=== PATIENT | female | born 1970 | race Two or more races ===

== ENCOUNTER 2017-06-09 14:53 | Emergency (ER) | payer MEDICAID ==
[~2017-06-09] VITALS: Ht 165.1 cm; Wt 56.7 kg
[2017-06-09 15:22] VITALS: BP 114/72
[2017-06-09] MEDS ORDERED: Famotidine 20 MG/ 2ML VIAL IVP ONE (15:45)
--- NOTE | 2017-06-09 15:55 | Emergency Room Report ---
History of Present Illness General Chief Complaint: Abdominal Pain Source: Patient Present Illness HPI The patient presents with crampy upper abdominal pain. It's been going on for 4 days. She states when severe it's a 9/10. When she is laying down now it's 2 /10. She states it's across the upper abdomen and possibly worse on the left- hand side. A week before she was feeling some indigestion type feelings. The only medication she took was acidophilus. It didn't help. In addition to that she was drinking some alcohol last night, wine, and this didn't seem to affect the pain at all. She denies any change in her bowels. Her last period was in April. She started vaginal spotting just before periods recently. She denies any dysuria, back pain. She denies any upper respiratory symptoms and denies chest pain. There's no cough or shortness of breath although when the cramping it's severe she does feel out of breath. She denies any medical problems. No recent travel, unusual food ingestion or ill contacts. Allergies: Coded Allergies: No Known Allergies (Unverified , 06/09/17) Patient History Past Medical History: see triage record Social History: Reports: alcohol use, Denies: smoking Social History Narrative junior designer Reviewed Nursing Documentation: PMH: Agreed, PSxH: Agreed Nursing Documentation-PM Past Medical History: No Stated History Review of Systems All Other Systems: negative except mentioned in HPI Physical Exam Vital Signs Date Time Temp Pulse Resp B/P Pulse Ox O2 Delivery O2 Flow Rate FiO2 06/09/17 14:59 97.3 110 20 114/61 98 Room Air Sp02 EP Interpretation: reviewed, normal General Appearance: well appearing, no apparent distress, GCS 15 Head: normocephalic Eyes: bilateral eye PERRL, bilateral eye normal inspection ENT: moist mucus membranes Neck: supple Respiratory: lungs clear, normal breath sounds Cardiovascular #1: regular rate, rhythm Cardiovascular #2: 2+ radial (R) Gastrointestinal: normal inspection, normal bowel sounds, no mass, non- distended, no guarding, no rebound, tenderness - epigastric and upper abdomen Genitourinary: no CVA tenderness - but some anterior pain with pushing on L side Musculoskeletal: back normal, gait/station normal, normal range of motion Neurologic: alert, oriented x3, grossly normal Psychiatric: mood/affect normal Skin: normal inspection, warm/dry Medical Decision Making Diagnostic Impression: Primary Impression: Abdominal pain Qualified Codes: R10.12 - Left upper quadrant pain Additional Impression: Leukocytosis Qualified Codes: D72.829 - Elevated white blood cell count, unspecified ER Course Patient presents with 4 days of crampy abdominal pain. Differential includes gastroenteritis, diverticulitis, pancreatitis, GERD, gastritis amongst others. The pain is occasionally severe and with this differential she needs to have a fairly extensive workup. This will include CBC, CMP, lipase and urinalysis urine test. In addition a CT of the abdomen with oral and IV contrast will be obtained. The patient will be treated with gentle IV hydration in addition to that will receive Pepcid. She declines pain medication at this time. White count is elevated at 14,400. Other labs are unremarkable. CT scan shows thickening and inflammatory changes of the colon at the splenic flexure which is either colitis but cannot exclude underlying lesion. Suggested colonoscopy. Hepatic lesions. Low attenuation foci in the kidneys. 2.7 cm lesion in the perineum (patient states she has a Bartholin's gland cyst there was front seat. 1.8 cm peripherally enhancing lesion along the right pelvic wall which may be an adnexal structures such as corpus luteum cyst. Nonspecific 4 mm linear and nodule right middle lobe. Based on the leukocytosis and the CT findings the patient needs hospitalization and observation. Discussed with patient who feels better. Given the fact that GI workup would not be done on weekend, we've elected to observe the patient as outpatient. (I also presented her to Dr. Rivero at [facility]) Laboratory Tests Test 06/09/17 15:02 06/09/17 16:10 Urine Color Pale yellow Urine Appearance Clear Urine pH 6 (4.5-8.0) Urine Specific [place] 1.005 (1.005-1.035) Urine Protein Negative (NEGATIVE) Urine Glucose (UA) Negative (NEGATIVE) Urine Ketones 1+ (NEGATIVE) H Urine Occult Blood 1+ (NEGATIVE) H Urine Nitrite Negative (NEGATIVE) Urine Bilirubin Negative (NEGATIVE) Urine Urobilinogen Normal MG/DL (0.0-1.0) Urine Leukocyte Esterase Negative (NEGATIVE) Urine RBC 0-2 /HPF (0 - 2) Urine WBC 0-2 /HPF (0 - 2) Urine Squamous Epithelial Cells Few /LPF (NONE/OCC) Urine Bacteria Few /HPF (NONE) Urine HCG, Qualitative Negative White Blood Count 14.4 K/UL (4.8-10.8) H Red Blood Count 4.55 M/UL (4.20-5.40) Hemoglobin 15.2 G/DL (12.0-16.0) Hematocrit 41.5 % (37.0-47.0) Mean Corpuscular Volume 91 FL (80-99) Mean Corpuscular Hemoglobin 33.4 PG (27.0-31.0) H Mean Corpuscular Hemoglobin Concent 36.5 G/DL (32.0-36.0) H Red Cell Distribution Width 11.4 % (11.6-14.8) L Platelet Count 210 K/UL (150-450) Mean Platelet Volume 8.2 FL (6.5-10.1) Neutrophils (%) (Auto) 79.7 % (45.0-75.0) H Lymphocytes (%) (Auto) 12.6 % (20.0-45.0) L Monocytes (%) (Auto) 5.8 % (1.0-10.0) Eosinophils (%) (Auto) 1.1 % (0.0-3.0) Basophils (%) (Auto) 0.8 % (0.0-2.0) Prothrombin Time 9.4 SEC (9.30-11.50) Prothrombin Time INR 0.9 (0.9-1.1) PTT 28 SEC (23-33) Sodium Level 137 mEQ/L (135-145) Potassium Level 4.4 mEQ/L (3.4-4.9) Chloride Level 100 mEQ/L (98-107) Carbon Dioxide Level 26 mEQ/L (20-30) Anion Gap 11 (5-15) Blood Urea Nitrogen 6 mg/dL (7-23) L Creatinine 0.6 mg/dL (0.5-0.9) Estimate Glomerular Filtration Rate > 60 mL/min (>60) Glucose Level 94 mg/dL (74-106) Calcium Level 9.8 mg/dL (8.6-10.2) Total Bilirubin 0.6 mg/dL (0.0-1.2) Aspartate Amino Transferase (AST) 13 U/L (5-40) Alanine Aminotransferase (ALT) 9 U/L (3-33) Alkaline Phosphatase 61 U/L (35-104) Total Protein 7.3 g/dL (6.6-8.7) Albumin 4.5 g/dL (3.5-5.2) Globulin 2.8 g/dL Albumin/Globulin Ratio 1.6 (1.0-2.7) Lipase 18 U/L (< 60) Rhythm Strip Diag. Results EP Interpretation: yes Rhythm: NSR, no PVC's, no ectopy Last Vital Signs Date Time Temp Pulse Resp B/P Pulse Ox O2 Delivery O2 Flow Rate FiO2 06/09/17 20:52 98.6 98 18 104/83 100 Room Air Status: improved Disposition: HOME, SELF-CARE Condition: Improved Scripts Tramadol Hcl* (ULTRAM*) 50 Mg Tablet 50 MG ORAL Q6H Y for For Pain, #6 TAB 0 Refills Prov: Tre Daigle M.D. 06/09/17 Dicyclomine Hcl* (BENTYL*) 10 Mg Capsule 10 MG ORAL FOUR TIMES A DAY Y for cramps, #10 CAP 1 Refill Prov: Tre Daigle M.D. 06/09/17 Acetaminophen (Tylenol) 325 Mg Tablet 650 MG ORAL Q6H Y for Prn Pain/Headache/Temp > 101, #20 TAB 0 Refills Prov: Ter Daigle M.D. 06/09/17 Tre Daigle M.D. Jun 09, 2017 15:55
[2017-06-09 16:04] LABS: APPEARANCE,URINE CLEAR; KETONES,URINE 1+ (NEGATIVE); LEUKOCYTE ESTERASE ,URINE NEGATIVE (NEGATIVE); NITRITE,URINE NEGATIVE (NEGATIVE); PH,URINE 6 (4.5-8.0); PROTEIN,URINE NEGATIVE (NEGATIVE); UROBILINOGEN,URINE NORMAL MG/DL (0.0-1.0)
[2017-06-09 16:22] LABS: RBC,URINE 0-2 /HPF (0 - 2); SQUAMOUS EPITHELIAL CELL,UR FEW /LPF (NONE/OCC); WBC,URINE 0-2 /HPF (0 - 2)
[2017-06-09 16:23] LABS: BACTERIA,URINE FEW /HPF
[2017-06-09 16:33] LABS: BASOPHILS % (AUTO) 0.8 % (0.0-2.0); EOSINOPHILS % (AUTO) 1.1 % (0.0-3.0); LYMPHOCYTES % (AUTO) 12.6 % (20.0-45.0); MEAN CORPUSCULAR HEMOGLOBIN 33.4 PG (27.0-31.0); MEAN CORPUSCULAR HGB CONC 36.5 G/DL (32.0-36.0); MEAN CORPUSCULAR VOLUME 91 FL (80-99); MEAN PLATELET VOLUME 8.2 FL (6.5-10.1); MONOCYTES % (AUTO) 5.8 % (1.0-10.0); NEUTROPHILS % (AUTO) 79.7 % (45.0-75.0); PLATELET COUNT 210 K/UL (150-450); RED BLOOD COUNT 4.55 M/UL (4.20-5.40); RED CELL DISTRIBUTION WIDTH 11.4 % (11.6-14.8); WHITE BLOOD COUNT 14.4 K/UL (4.8-10.8)
[2017-06-09 16:39] LABS: INR 0.9 (0.9-1.1); PROTHROMBIN TIME 9.4 SEC (9.30-11.50)
[2017-06-09 16:46] LABS: ALANINE AMINOTRANSFERASE 9 U/L (3-33); ALBUMIN/GLOBULIN RATIO 1.6 (1.0-2.7); ANION GAP 11 (5-15); ASPARTATE AMINO TRANSFERASE 13 U/L (5-40); CALCIUM 9.8 mg/dL (8.6-10.2); CARBON DIOXIDE 26 mEQ/L (20-30); CHLORIDE 100 mEQ/L (98-107); CREATININE 0.6 mg/dL (0.5-0.9); GLOMERULAR FILTRATION RATE > 60 mL/min (>60); HEMOLYSIS 0; LIPASE 18 U/L (< 60); POTASSIUM 4.4 mEQ/L (3.4-4.9); SODIUM 137 mEQ/L (135-145); TOTAL PROTEIN 7.3 g/dL (6.6-8.7)
[2017-06-09 18:14] VITALS: BP 101/80
[2017-06-09] MEDS ORDERED: NKM (19:24)
[2017-06-09] MEDS ORDERED: BENTYL10 MG ORAL (20:36)
[2017-06-09] MEDS ORDERED: TYLENOL325 MG ORAL (20:36)
[2017-06-09] MEDS ORDERED: TRAMADOL HCL50 MG ORAL (20:38)
[2017-06-09 20:52] VITALS: BP 104/83
--- NOTE | 2017-06-10 10:36 | Diagnostic Imaging Report ---
Indication: Abdominal pain Technique: Continuous helical transaxial imaging of the abdomen and pelvis was obtained from the lung bases to the pubic symphysis during intravenous contrast administration. Coronal 2-D reformats were also obtained. Study obtained in a Siemens sensation [address] Total Dose length Product (DLP): [address] Dose Index Volume (CTDIvol): 17, 17 mGy Comparison: None Findings: In the left upper quadrant of the abdomen, there is an abnormal fairly short segment focus of bowel wall thickening involving the splenic flexure of the colon. Presently there is luminal narrowing. The pericolonic fat is ill-defined with soft tissue stranding and a small amount of fluid noted. This is indicative of inflammation. Is the findings may be inflammatory in nature. However the possibility of a colonic adenocarcinoma should be considered. Further right lesion with colonoscopy is recommended. The lesion is nonobstructive. There is good opacification of the colon both proximal and distal to it. There is no free air. There is no pneumatosis. There is moderate fecal retention within the rectosigmoid region. Suggestion of diverticulosis. Rim-enhancing approximately 2 cm cystic focus in the right adnexa likely an ovarian cyst. A similar or possibly involuting cyst in the left adnexa measuring 2 x 1 CM. Uterus is slightly heterogeneous. The appendix is identified and appears normal opacified with contrast material. There is a 3.4 x 2.2 cm left perineal cyst. This is in posterior lateral aspect of the vagina and is most likely an enlarged Bartholin's gland cyst. This is fairly large and may be symptomatic. Referral to [employer]PORATE CLAIMS EXAMINER is suggested. Within the liver there is a 3 cm hypodensity that shows marginal and nodular enhancement. This is most likely hemangioma, but not definitive the proven on the current study which was not a dynamic CT. There are other smaller hypodensities present that are nonspecific and could be either hemangiomata or possibly cysts. Is there a one or 2 tiny hypodensities within the kidneys too small to adequately characterize. One is likely a cyst measuring about 5-6 mm in the left kidney. The spleen, pancreas, gallbladder, adrenal glands appear normal. Trace free fluid in the pelvis noted. There is no free air or evidence of bowel obstruction. Pars interarticularis defects are demonstrated bilaterally at L5. There is no subluxation and alignment of the lumbosacral spine is normal. Impression: Focus of marked wall thickening/luminal narrowing noted in the splenic flexure of the colon with pericolonic inflammation. Findings could have an inflammatory basis such as diverticulitis. However adenocarcinoma is a definite possibility and colonoscopy is recommended for further evaluation. 3 cm hypodensity in the right lower liver most likely hemangioma. Suggest either correlation ultrasound and/or more definitive CT hemangioma protocol. Small hypodensities in the liver and kidneys too small to characterize adequately. 3.4 x 2.2 cm suspected enlarged left Bartholin gland cyst. Gynecology referral suggested. Diverticulosis of the colon mild in degree Suggestion of bilateral ovarian cysts. Normal appendix L5 spondylolysis. No associated spondylolisthesis. [facility] has communicated the preliminary results to the Emergency Department. Their findings are largely concordant with this report. The CT scanner at [facility] is accredited by the [employer] and the scans are performed using dose optimization techniques as appropriate to a performed exam including Automatic Exposure control.
== END 2017-06-09 20:50 | disposition home or self-care (01) ==
LOC: EMR 16:20 → EDBEDREQ 20:16 → EMR 20:50
DX: R10.12 Left upper quadrant pain (principal); D72.829 Elevated white blood cell count, unspecified; K57.90 Diverticulosis of intestine, part unspecified, without perforation or abscess without bleeding; M47.896 Other spondylosis, lumbar region
CPT/HCPCS: 36415; 74177; 80053; 81003; 81025; 83690; 85025; 85610; 85730; 96374; 96375; 99284; Q9967; S0028